=== PATIENT | female | born 1960 | race Caucasian/White ===

== ENCOUNTER → 2017-05-04 | Outpatient (CLI) | payer BC | LOC: BMCIMAGING 08:41 | PROVIDERS: ATTEND Obstetrics & Gynecology Gynecology | DX: Z12.31 Encounter for screening mammogram for malignant neoplasm of breast (principal); R92.8 Other abnormal and inconclusive findings on diagnostic imaging of breast | CPT/HCPCS: G0202 ==

== ENCOUNTER → 2017-05-18 | Outpatient (CLI) | payer BC | LOC: BMCIMAGING 09:46 | PROVIDERS: ATTEND Obstetrics & Gynecology Gynecology | DX: R92.8 Other abnormal and inconclusive findings on diagnostic imaging of breast (principal) | CPT/HCPCS: G0206 ==

== ENCOUNTER 2017-08-12 10:22 | Emergency (ER) | payer BC ==
[2017-08-12 10:30] VITALS: TEMP 98.4; O2SAT 97
--- NOTE | 2017-08-12 10:38 | EDPHY ---
H & P Stated Complaint: Transient episodes of light flashing in L eye since yesterday Time Seen by Provider: 08/12/17 10:37 - Personal History Current Tetanus Diphtheria and Acellular Pertussis (TDAP): Unsure - Medical/Surgical History Other PMH: healthy - Social History Smoking Status: Never smoked Constitutional: Initial Vital Signs Temperature (C) 36.9 C 08/12/17 10:27 Heart Rate 68 08/12/17 10:27 Respiratory Rate 18 08/12/17 10:27 Blood Pressure 149/74 H 08/12/17 10:27 O2 Sat (%) 97 08/12/17 10:27 O2 Delivery Mode Room Air Allergies/Adverse Reactions: No Known Allergies Allergy (Unverified 08/12/17 10:26) Home Medications: Medication Instructions Recorded Control Pills 08/12/17 Medical Decision Making ED Course/Re-evaluation: CHIEF COMPLAINT: Light flashes in left eye HISTORY OF PRESENT ILLNESS: The patient is a 57 y/o female with a history of myopia complaining of flashes of vertical light on the outer edge of her left eye onset yesterday. Yesterday after noon she was hiking when she noticed a vertical flash of light on the outside edge of her left eye. The flash occurred about every 10 minutes last night and was present this morning. She initially went to urgent care who directed her to come to the ED. She denies loss of vision or any other associated symptoms. She denies history of glaucoma or macular degeneration. REVIEW OF SYSTEMS: A 10 point review of systems was performed and is negative with the exception of the elements mentioned in the history of present illness. PHYSICAL EXAM: HR, BP, O2 Sat, RR. Temp noted General Appearance: Alert, well hydrated, appropriate, and non-toxic appearing. Head: Atraumatic without scalp tenderness or obvious injury Visual Acuity: Noted from Nurse's notes. Pupils: PERRLA, EOMI, no nystagmus, no trauma, no injection. Lids: No edema or swelling Skin: No proptosis, no periorbital erythema or swelling, no vesicles Conjunctivae: Not injected, not icteric, no discharge Cornea: Exam with slit lamp and fluorescein shows Anterior chamber: Normal, no hyphema or hypopyon Posterior Chamber: No papilledema or hemorrhages. Past medical history: Denies Past surgical history: Denies Family history: Non-contributory Social history: Hiker, DIAGNOSTICS/PROCEDURES/CRITICAL CARE TIME: DIFFERENTIAL DIAGNOSIS: The differential diagnosis includes but is not limited to vitreous detachment, retinal detachment, or neurological disorder. MEDICAL DECISION MAKING: The patient is a 57 y/o female complaining of vertical flashes of light on the outer edge of her left eye, onset yesterday. She denies loss of vision or other associated symptoms. I feel she likely has a vitreous detachment. I have referred her to Dr. Quintero for follow up. Return precaution given. Patient agrees to this course of action. Departure - Departure Disposition: Home, Routine, Self-Care Clinical Impression: Vitreous detachment of left eye Condition: Good Instructions: Visual Floaters (ED) Additional Instructions: 1. Follow up with Dr. Quintero tomorrow. 2. Return to the ED for any worsening of condition. Referrals: Zandra Altman MD [Primary Care Provider] - As per Instructions Melissa Subramanian MD [Non Staff Provider ()] - As per Instructions Report Scribed for: Gianni Roland Report Scribed by: Jing Rizo Date of Report: 08/12/17 Time of Report: 10:49
[2017-08-12] MEDS ORDERED: FLUORESCEIN SODIUM 1 MG STRIP OP ONE ×2 (10:43→10:46)
[2017-08-12] MEDS ORDERED: PROPARACAINE 0.5% 15 ML OPHT DROP ONE (10:44)
[2017-08-12] MEDS ORDERED: PROPARACAINE 0.5% 15 ML OPHT DROP LEFTEYE ONE (10:46)
[2017-08-12 11:02] VITALS: BP 151/86; PULSE 71; RESP 16
== END 2017-08-12 11:01 | disposition home or self-care (01) ==
DX: H43.812 Vitreous degeneration, left eye (principal)

== ENCOUNTER → 2018-09-12 | Outpatient (CLI) | payer BC | LOC: BMCIMAGING 12:38 | PROVIDERS: ATTEND Obstetrics & Gynecology Gynecology | DX: Z12.31 Encounter for screening mammogram for malignant neoplasm of breast (principal) ==